=== PATIENT | male | born 1950 | race Caucasian/White ===

== ENCOUNTER 2017-10-21 08:30 | Outpatient (RCR) | payer MEDICARE, MEDICAID | END 2017-11-06 | disposition home or self-care (01) | LOC: PTY 08:30 | DX: M51.36 Other intervertebral disc degeneration, lumbar region (principal) | CPT/HCPCS: 97110; 97140; 97161; G8978; G8979 ==

== ENCOUNTER 2017-11-22 09:20 | Outpatient (RCR) | payer MEDICARE, MEDICAID | END 2017-12-07 | disposition home or self-care (01) | LOC: PTY 09:20 | DX: M51.36 Other intervertebral disc degeneration, lumbar region (principal) ==